=== PATIENT | female | born 1965 | race Caucasian/White ===

== ENCOUNTER 2017-02-16 05:31 | Day surgery (SDC) | payer OTHER ==
[~2017-02-16 05:31] MED LIST: HERCEPTIN440 MG IV
[2017-02-16 06:39] LABS: BASO % 0.9 % (0-2); BASO ABSOLUTE COUNT 0.1 tho/cmm (0.0-0.2); EOS % 1.1 % (0-7); EOSINOPHIL ABSOLUTE COUNT 0.1 tho/cmm (0.0-0.7); HCT-HEMATOCRIT 32.6 % (34.0-49.0); HGB-HEMOGLOBIN 10.4 gm/dl (12.0-15.5); LYMPH % 27.3 % (20-45); LYMPH ABSOLUTE COUNT 1.5 tho/cmm (0.8-4.5); MCH (MEAN CORPUSCULAR HGB) 34.7 pg (28.0-32.0); MCHC MEAN CORPUSCULAR HGB CONC 31.9 % (32.0-36.0); MCV (MEAN CELL VOLUME) 108.7 fl (82.0-96.0); MEAN PLATELET VOLUME 8.7 cmc (9.4-12.4); MONO % 12.8 % (0-12); MONOCYTE ABSOLUTE COUNT 0.7 tho/cmm (0.0-1.2); NEUTROPHIL ABSOLUTE COUNT 3.1 tho/cmm (1.6-8.0); NEUTROPHIL-AUTOMATED 3.1 tho/cmm (1.6-8.0); NEUTROPHILS % 57.9 % (40-80); PLATELET COUNT 304 tho/cmm (150-450); RED CELL DISTRIBUTION WIDTH 15.2 % (12.4-16.4); WHITE BLOOD COUNT 5.3 tho/cmm (4.0-10.0)
--- NOTE | 2017-02-16 20:56 | NUR ---
VIRTUAL CARE NOTE: ASSESSMENT DEFERRED. ATTEMPTED TO ROUND, PT EITHER WITH STAFF OR SLEEPING. WILL CONTINUE WITH CHART REVIEW.
[2017-02-17 06:07] LABS: HCT-HEMATOCRIT 28.3 % (34.0-49.0); HGB-HEMOGLOBIN 9.4 gm/dl (12.0-15.5); MCV (MEAN CELL VOLUME) 105.6 fl (82.0-96.0); RED CELL DISTRIBUTION WIDTH 15.6 % (12.4-16.4)
[2017-02-17] MEDS ORDERED: PERCOCET 5-3251 EACH PO (08:10)
[2017-02-17] MEDS ORDERED: HYDROCODON-ACE1 EA16 PO (08:10)
== END 2017-02-17 12:25 ==
LOC: SRG 05:31 → SHSB 05:32 → ORW 09:25 → PACU 12:10 → 5WD 13:00
PROVIDERS: Surgery
PROC: 0HTV0ZZ Resection of Bilateral Breast, Open Approach (ICD-10-PCS; principal; 2017-02-16)
PROC: 07B50ZX Excision of Right Axillary Lymphatic, Open Approach, Diagnostic (ICD-10-PCS; 2017-02-16)
PROC: 0HUV0JZ Supplement Bilateral Breast with Synthetic Substitute, Open Approach (ICD-10-PCS; 2017-02-16)
DX: D24.1 Benign neoplasm of right breast (principal); R92.0 Mammographic microcalcification found on diagnostic imaging of breast; Z79.899 Other long term (current) drug therapy; Z80.3 Family history of malignant neoplasm of breast; Z90.49 Acquired absence of other specified parts of digestive tract; Z90.710 Acquired absence of both cervix and uterus; Z98.890 Other specified postprocedural states
CPT/HCPCS: A9520; C1781; C1789; J0690; J2250; J2270; J2795; J3010